=== PATIENT | female | born 1980 | race Hispanic/Latino ===

== ENCOUNTER 2018-08-02 12:28 | Emergency (ER) | payer OTHER ==
[2018-08-02] MEDS ORDERED: IOHEXOL-350 75 ML VIAL IV ONE ×2 (12:44)
[2018-08-02 13:33] LABS: BASOPHILS % (AUTO) 0.7 % (0.0-5.0); EOSINOPHILS % (AUTO) 1.8 % (0.0-8.0); HEMATOCRIT 35.7 % (36-48); LYMPHOCYTES % (AUTO) 14.1 % (21.0-51.0); MEAN CORPUSCULAR HEMOGLOBIN 31.2 pg (27.0-33.0); MEAN CORPUSCULAR HGB CONC 34.5 g/dL (32.0-36.0); MEAN CORPUSCULAR VOLUME 90.6 fL (79-99); MONOCYTES % (AUTO) 8.6 % (3.0-13.0); NEUTROPHILS % (AUTO) 74.8 % (40.0-77.0); PLATELET COUNT (AUTO) 342 K/uL (130-400); RED BLOOD CELL COUNT(AUTO) 3.94 MIL/uL (4.00-5.50); RED CELL DISTRIBUTION WIDTH 12.9 % (11.0-15.5); WHITE BLOOD COUNT (AUTO) 11.4 K/uL (4.8-10.8)
[2018-08-02 13:38] LABS: CREATININE 0.6 mg/dL (0.5-1.5); POTASSIUM 3.7 mmol/L (3.5-5.1)
[2018-08-02] MEDS ORDERED: ONDANSETRON HCL 4 MG/2 ML VIAL ONE (14:11)
[2018-08-02] MEDS ORDERED: MORPHINE SULFATE 4 MG/1ML SYG ONE (14:12)
== END 2018-08-02 15:04 | disposition home or self-care (01) ==
LOC: EDH 12:28
DX: S40.011A Contusion of right shoulder, initial encounter (principal); S50.01XA Contusion of right elbow, initial encounter; S60.221A Contusion of right hand, initial encounter; S09.90XA Unspecified injury of head, initial encounter; M54.2 Cervicalgia; M54.5 Low back pain; M54.6 Pain in thoracic spine; V49.49XA Driver injured in collision with other motor vehicles in traffic accident, initial encounter; Y93.89 Activity, other specified; Y92.89 Other specified places as the place of occurrence of the external cause; Y99.8 Other external cause status
CPT/HCPCS: 36415; 70450; 71045; 72125; 73030; 73080; 73090; 73130; 74177; 80048; 84703; 85025; 93005; 96374; 96375; 99285; J2270; J2405; Q9967

== ENCOUNTER 2021-04-07 23:52 | Emergency (ER) | payer OTHER, SELFPAY ==
[2021-04-08] MEDS ORDERED: ACETAMINOPHEN EXTRA STRENGTH 500 MG TABLET ONE (00:17)
[2021-04-08] MEDS ORDERED: IBUPROFEN 400 MG TABLET ONE (00:17)
[2021-04-08] MEDS ORDERED: IBUPROFEN 200 MG TAB ONE (00:18)
[2021-04-08] MEDS ORDERED: CYCLOBENZAPRINE HCL 10 MG TABLET ONE (01:02)
== END 2021-04-08 01:23 | disposition home or self-care (01) ==
LOC: EDH 23:52
DX: S83.91XA Sprain of unspecified site of right knee, initial encounter (principal); X58.XXXA Exposure to other specified factors, initial encounter; Y93.89 Activity, other specified; Y92.098 Other place in other non-institutional residence as the place of occurrence of the external cause; Y99.8 Other external cause status; Z98.890 Other specified postprocedural states
CPT/HCPCS: 73562

== ENCOUNTER 2021-09-04 14:08 | Emergency (ER) | payer OTHER ==
[~2021-09-04] VITALS: Ht 160 cm; Wt 108.9 kg
[2021-09-04] MEDS ORDERED: KETOROLAC 30MG VIAL (30MG/ML) IM STA (17:08)
[2021-09-04 19:13] LABS: APPEARANCE,URINE Cloudy (CLEAR); BILIRUBIN,URINE Negative (NEGATIVE); COLOR,URINE Yellow (YELLOW); GLUCOSE, URINE (UA) Negative (NEGATIVE); KETONES,URINE 40 mg/dL (NEGATIVE); LEUKOCYTE ESTERASE ,URINE Negative (NEGATIVE); NITRATE,URINE Negative (NEGATIVE); OCCULT BLOOD,URINE Trace (NEGATIVE); PH,URINE 5.5 (5.0-8.0); PROTEIN,URINE Negative (NEGATIVE); UROBILINOGEN,URINE 0.2 mg/dL (0.2-1.0)
[2021-09-04 19:22] LABS: BACTERIA,URINE Few /HPF (None Seen); MUCUS,URINE Rare LPF (None Seen); RBC,URINE 0-1 /HPF (0-1); SQUAMOUS EPITHELIAL CELL,UR Few /HPF (0-2); WBC,URINE 0-1 /HPF (0-1)
[2021-09-04 19:35] LABS: BASOPHILS % (AUTO) 0.7 % (0.0-5.0); EOSINOPHILS % (AUTO) 2.2 % (0.0-8.0); HEMATOCRIT 41.1 % (36-48); LYMPHOCYTES % (AUTO) 26.9 % (21.0-51.0); MEAN CORPUSCULAR HEMOGLOBIN 30.2 pg (27.0-33.0); MEAN CORPUSCULAR HGB CONC 34.3 g/dL (32.0-36.0); MONOCYTES % (AUTO) 6.1 % (3.0-13.0); NEUTROPHILS % (AUTO) 63.7 % (40.0-77.0); PLATELET COUNT (AUTO) 379 K/uL (130-400); RED BLOOD CELL COUNT(AUTO) 4.67 MIL/uL (4.00-5.50); RED CELL DISTRIBUTION WIDTH 13.1 % (11.0-15.5); WHITE BLOOD COUNT (AUTO) 12.2 K/uL (4.8-10.8)
[2021-09-04 20:05] LABS: CREATININE 0.6 mg/dL (0.5-1.5); POTASSIUM 3.8 mmol/L (3.5-5.1)
[2021-09-04 20:09] LABS: ALBUMIN 4.3 g/dL (3.5-5.0); BILIRUBIN,TOTAL 0.5 mg/dL (0.2-1.0); TOTAL PROTEIN, SERUM 8.6 g/dL (6.0-8.3)
[2021-09-04] MEDS ORDERED: 0.9%NACL 1000ML 1,000 ML IV SCH ×2 (21:30→22:30)
[2021-09-04] MEDS ORDERED: MELO7.5T12 PO (22:03)
[2021-09-04 22:16] VITALS: BP 124/76
== END 2021-09-04 22:14 | disposition home or self-care (01) ==
LOC: EDH 14:08
DX: E27.8 Other specified disorders of adrenal gland (principal); K42.9 Umbilical hernia without obstruction or gangrene; Z79.1 Long term (current) use of non-steroidal anti-inflammatories (NSAID); Z98.890 Other specified postprocedural states
CPT/HCPCS: 36415; 74176; 80053; 81001; 82150; 83690; 84703; 85025; 96360; 96372; 99284; J1885; J7030

== ENCOUNTER 2021-11-14 23:46 | Emergency (ER) | payer OTHER ==
[~2021-11-14] VITALS: Ht 160 cm; Wt 109.3 kg
[~2021-11-14 23:46] MED LIST: MELO7.5T12 PO
[2021-11-14 23:47] VITALS: BP 128/69
[2021-11-15] MEDS ORDERED: HYDROCODONE/ACETAMINOPHEN 5/325 MG TAB PO ONE (01:00)
[2021-11-15] MEDS ORDERED: ORPHENADRINE CITRATE 30 MG/ML ML IM ONE (01:00)
[2021-11-15] MEDS ORDERED: KETOROLAC 60 MG VIAL (30MG/ML) IM ONE (01:00)
[2021-11-15] MEDS ORDERED: ORPHENADRINE CITRATE 30 MG/ML ML ONE (01:09)
[2021-11-15] MEDS ORDERED: KETOROLAC 60 MG VIAL (30MG/ML) ONE (01:09)
[2021-11-15] MEDS ORDERED: HYDROCODONE/ACETAMINOPHEN 5/325 MG TAB ONE (01:09)
[2021-11-15 01:19] LABS: BILIRUBIN,URINE Negative (NEGATIVE); COLOR,URINE Yellow (YELLOW); GLUCOSE, URINE (UA) Negative (NEGATIVE); KETONES,URINE Negative (NEGATIVE); LEUKOCYTE ESTERASE ,URINE Negative (NEGATIVE); NITRATE,URINE Negative (NEGATIVE); OCCULT BLOOD,URINE Trace (NEGATIVE); PH,URINE 5.5 (5.0-8.0); PROTEIN,URINE Trace mg/dL (NEGATIVE)
[2021-11-15 01:21] LABS: HCG,QUAL RESULT NEGATIVE (NEGATIVE)
[2021-11-15 01:22] LABS: APPEARANCE,URINE HAZY (CLEAR)
[2021-11-15 01:33] LABS: BACTERIA,URINE Few /HPF (None Seen); MUCUS,URINE Few LPF (None Seen); RBC,URINE 0-1 /HPF (0-1); SQUAMOUS EPITHELIAL CELL,UR 0-2 /HPF (0-2); WBC,URINE 0-1 /HPF (0-1)
[2021-11-15] MEDS ORDERED: MELO7.5T12 PO (02:23)
[2021-11-15] MEDS ORDERED: LIDOP TP (02:23)
[2021-11-15] MEDS ORDERED: ORPH-43 PO (02:23)
== END 2021-11-15 02:38 | disposition home or self-care (01) ==
LOC: EDH 23:46
DX: S93.601A Unspecified sprain of right foot, initial encounter (principal); S39.012A Strain of muscle, fascia and tendon of lower back, initial encounter; S30.0XXA Contusion of lower back and pelvis, initial encounter; W18.39XA Other fall on same level, initial encounter; Y93.89 Activity, other specified; Y92.89 Other specified places as the place of occurrence of the external cause; Y99.8 Other external cause status; Z79.1 Long term (current) use of non-steroidal anti-inflammatories (NSAID)
CPT/HCPCS: 72100; 73630; 81001; 81025; 96372 ×2; 99284; J1885; J2360

== ENCOUNTER 2021-11-17 10:52 | Emergency (ER) | payer OTHER ==
[~2021-11-17] VITALS: Ht 160 cm; Wt 108.9 kg
[~2021-11-17 10:52] MED LIST changes: +LIDOP TP; +ORPH-43 PO
[2021-11-17 12:22] LABS: APPEARANCE,URINE Clear (CLEAR); BILIRUBIN,URINE Negative (NEGATIVE); COLOR,URINE Yellow (YELLOW); GLUCOSE, URINE (UA) Negative (NEGATIVE); KETONES,URINE Negative (NEGATIVE); LEUKOCYTE ESTERASE ,URINE Negative (NEGATIVE); NITRATE,URINE Negative (NEGATIVE); OCCULT BLOOD,URINE Small (NEGATIVE); PROTEIN,URINE Negative (NEGATIVE); UROBILINOGEN,URINE 0.2 mg/dL (0.2-1.0)
[2021-11-17] MEDS ORDERED: KETOROLAC 60 MG VIAL (30MG/ML) IM ONE (12:30)
[2021-11-17] MEDS ORDERED: ORPHENADRINE CITRATE 30 MG/ML ML IM ONE (12:30)
[2021-11-17] MEDS ORDERED: HYDROCODONE/ACETAMINOPHEN 5/325 MG TAB PO ONE (12:30)
[2021-11-17 12:39] LABS: BACTERIA,URINE Rare /HPF (None Seen); RBC,URINE 0-1 /HPF (0-1); SQUAMOUS EPITHELIAL CELL,UR Rare /HPF (0-2); WBC,URINE 0-1 /HPF (0-1)
[2021-11-17 12:41] LABS: HCG,QUAL RESULT NEGATIVE (NEGATIVE)
[2021-11-17] MEDS ORDERED: CYCL-309 PO (14:02)
[2021-11-17 14:24] VITALS: BP 126/74
== END 2021-11-17 14:24 | disposition home or self-care (01) ==
LOC: EDH 10:52
DX: M54.50 Low back pain, unspecified (principal); M62.838 Other muscle spasm; Z79.1 Long term (current) use of non-steroidal anti-inflammatories (NSAID)
CPT/HCPCS: 74176; 81001; 81025; 96372 ×2; 99284; J1885; J2360

== ENCOUNTER 2022-02-19 00:26 | Emergency (ER) | payer OTHER ==
[~2022-02-19] VITALS: Ht 160 cm; Wt 105.2 kg
[~2022-02-19 00:26] MED LIST changes: +CYCL-309 PO
[2022-02-19 01:22] LABS: BASOPHILS % (AUTO) 0.5 % (0.0-5.0); EOSINOPHILS % (AUTO) 2.7 % (0.0-8.0); HEMATOCRIT 38.3 % (36-48); LYMPHOCYTES % (AUTO) 28.8 % (21.0-51.0); MEAN CORPUSCULAR HGB CONC 34.2 g/dL (32.0-36.0); MEAN CORPUSCULAR VOLUME 87.6 fL (79-99); MONOCYTES % (AUTO) 7.6 % (3.0-13.0); PLATELET COUNT (AUTO) 286 K/uL (130-400); RED BLOOD CELL COUNT(AUTO) 4.37 MIL/uL (4.00-5.50); RED CELL DISTRIBUTION WIDTH 13.2 % (11.0-15.5)
[2022-02-19 01:26] LABS: APPEARANCE,URINE Clear (CLEAR); BILIRUBIN,URINE Negative (NEGATIVE); COLOR,URINE Yellow (YELLOW); GLUCOSE, URINE (UA) Negative (NEGATIVE); KETONES,URINE Trace mg/dL (NEGATIVE); LEUKOCYTE ESTERASE ,URINE Trace (NEGATIVE); NITRATE,URINE Negative (NEGATIVE); OCCULT BLOOD,URINE Negative (NEGATIVE); PROTEIN,URINE Negative (NEGATIVE)
[2022-02-19 01:28] LABS: HCG,QUAL RESULT NEGATIVE (NEGATIVE)
[2022-02-19 01:32] LABS: BACTERIA,URINE None Seen /HPF (None Seen); MUCUS,URINE Rare LPF (None Seen); RBC,URINE None Seen /HPF (0-1); SQUAMOUS EPITHELIAL CELL,UR Moderate /HPF (0-2); WBC,URINE 0-1 /HPF (0-1)
[2022-02-19 01:33] LABS: INR 0.98 (0.85-1.15); PROTHROMBIN TIME 10.7 SEC (9.6-11.6)
[2022-02-19 01:57] LABS: CREATININE 0.7 mg/dL (0.5-1.5); POTASSIUM 3.9 mmol/L (3.5-5.1)
[2022-02-19 02:01] LABS: BILIRUBIN,TOTAL 0.3 mg/dL (0.2-1.0); TOTAL PROTEIN, SERUM 7.8 g/dL (6.0-8.3)
[2022-02-19] MEDS ORDERED: LIDOP TP (02:57)
[2022-02-19] MEDS ORDERED: LIDOCAINE 5% TOPICAL PATCH TP ONE (03:00)
[2022-02-19 03:15] VITALS: BP 110/56
== END 2022-02-19 03:19 | disposition home or self-care (01) ==
LOC: EDH 00:26
DX: I83.892 Varicose veins of left lower extremity with other complications (principal); Z79.1 Long term (current) use of non-steroidal anti-inflammatories (NSAID)
CPT/HCPCS: 36415; 80053; 81001; 81025; 84484; 85025; 85610; 93005; 93971

== ENCOUNTER 2022-12-09 01:09 | Emergency (ER) | payer OTHER ==
[~2022-12-09] VITALS: Ht 160 cm; Wt 103.0 kg
[~2022-12-09 01:09] MED LIST changes: +FAMO-136 PO; +FIORIT PO; +ONDA4TAB10 PO
[2022-12-09 02:34] VITALS: BP 136/72
[2022-12-09] MEDS ORDERED: DOCU-116 PO (03:26)
[2022-12-09] MEDS ORDERED: HYDR25SU38 RC (03:26)
== END 2022-12-09 03:37 | disposition home or self-care (01) ==
LOC: EDH 01:09
DX: K64.5 Perianal venous thrombosis (principal); Z79.1 Long term (current) use of non-steroidal anti-inflammatories (NSAID); Z79.899 Other long term (current) drug therapy; Z98.890 Other specified postprocedural states
CPT/HCPCS: 99282

== ENCOUNTER 2024-08-06 17:46 | Emergency (ER) | payer OTHER ==
[~2024-08-06] VITALS: Ht 160 cm; Wt 112.9 kg
[~2024-08-06 17:46] MED LIST changes: +DOCU-116 PO; +HYDR25SU38 RC; +ONDA-243 PO; -ONDA4TAB10 PO; -ORPH-43 PO; +ORPH100T4 PO
[2024-08-06 18:13] LABS: BASOPHILS # (AUTO) 0.08 K/uL (0.00-0.20); BASOPHILS % (AUTO) 0.7 % (0.0-5.0); EOSINOPHILS # (AUTO) 0.29 K/uL (0.00-0.70); EOSINOPHILS % (AUTO) 2.4 % (0.0-8.0); HEMATOCRIT 39.3 % (36-48); IMMATURE GRANULOCYTE ABSOLUTE 0.04 K/uL (0-1); LYMPHOCYTES % (AUTO) 24.2 % (21.0-51.0); MEAN CORPUSCULAR HEMOGLOBIN 31.2 pg (27.0-33.0); MEAN CORPUSCULAR HGB CONC 34.9 g/dL (32.0-36.0); MEAN CORPUSCULAR VOLUME 89.5 fL (79-99); MONOCYTES % (AUTO) 8.1 % (3.0-13.0); NEUTROPHILS # (AUTO) 7.9 K/uL (1.8-7.7); NEUTROPHILS % (AUTO) 64.3 % (40.0-77.0); PLATELET COUNT (AUTO) 351 K/uL (130-400); RED BLOOD CELL COUNT(AUTO) 4.39 MIL/uL (4.00-5.50); RED CELL DISTRIBUTION WIDTH 12.8 % (11.0-15.5); WHITE BLOOD COUNT (AUTO) 12.3 K/uL (4.8-10.8)
[2024-08-06 18:23] LABS: CREATININE 0.9 mg/dL (0.5-1.0); POTASSIUM 3.7 mmol/L (3.5-5.1)
[2024-08-06 18:28] LABS: BILIRUBIN,TOTAL 0.5 mg/dL (0.2-1.0)
[2024-08-06] MEDS: ketOROlac 15MG/ML VIAL (15MG/ML) IV ONE (19:02)
[2024-08-06 19:15] LABS: APPEARANCE,URINE CLOUDY (CLEAR); BILIRUBIN,URINE NEGATIVE (NEGATIVE); COLOR,URINE YELLOW (YELLOW); GLUCOSE, URINE (UA) NEGATIVE (NEGATIVE); KETONES,URINE 5 mg/dL (NEGATIVE); LEUKOCYTE ESTERASE ,URINE NEGATIVE Leu/uL (NEGATIVE); NITRATE,URINE NEGATIVE (NEGATIVE); OCCULT BLOOD,URINE NEGATIVE (NEGATIVE); PROTEIN,URINE 20 mg/dL (NEGATIVE); UROBILINOGEN,URINE 0.2 mg/dL (0.2-1.0)
[2024-08-06 19:18] LABS: ADD UA MICROSCOPIC YES
[2024-08-06 19:21] LABS: BACTERIA,URINE RARE /HPF (None Seen); MUCUS,URINE RARE LPF (None Seen); SQUAMOUS EPITHELIAL CELL,UR FEW /HPF (0-2)
[2024-08-06] MEDS: ondanSETRON 4MG INJ IVP ONE (20:36)
[2024-08-06] MEDS: morPHINE 2 MG SYG IVP ONE (20:36)
[2024-08-06] MEDS ORDERED: KETO10TA2 PO (20:50)
[2024-08-06 21:14] VITALS: BP 127/55; PULSE 71; RESP 18; TEMP 98.8; O2SAT 99
[2024-08-07] MEDS ORDERED: IBUP-2070 PO (16:21)
[2024-08-07] MEDS ORDERED: CYCL5TAB PO (16:21)
== END 2024-08-06 21:15 | disposition home or self-care (01) ==
LOC: EDH 17:46
DX: M79.602 Pain in left arm (principal); R07.89 Other chest pain; Z79.899 Other long term (current) drug therapy; Z98.890 Other specified postprocedural states
CPT/HCPCS: 99285; 96374; 96375; 71045; 84484; 80053; 85025; 81001; 36415; 93005; J2270; J2405; J1885

== ENCOUNTER 2024-08-07 14:13 | Emergency (ER) | payer OTHER ==
[~2024-08-07] VITALS: Ht 160 cm; Wt 112.9 kg
[~2024-08-07 14:13] MED LIST changes: +KETO10TA2 PO
[2024-08-07] MEDS: ketOROlac 30MG VIAL (30MG/ML) IM ONE (14:51)
[2024-08-07] MEDS: CYCLOBENZAPRINE HCL 10 MG TABLET PO ONE (14:51)
[2024-08-07] MEDS: LIDOCAINE 4% ADH..PATCH TP ONE (15:41)
[2024-08-07] MEDS ORDERED: CYCL5TAB PO (16:21)
[2024-08-07] MEDS ORDERED: IBUP-2070 PO (16:21)
[2024-08-07 16:44] VITALS: BP 121/82; PULSE 84; RESP 20; TEMP 98.4; O2SAT 97
== END 2024-08-07 16:50 | disposition home or self-care (01) ==
LOC: EDH 14:13
DX: S43.401A Unspecified sprain of right shoulder joint, initial encounter (principal); R07.89 Other chest pain; M79.621 Pain in right upper arm; Z79.899 Other long term (current) drug therapy; Z98.890 Other specified postprocedural states; Y04.0XXA Assault by unarmed brawl or fight, initial encounter; Y93.89 Activity, other specified; Y92.89 Other specified places as the place of occurrence of the external cause; Y99.8 Other external cause status
CPT/HCPCS: 99284; 73070; 73030; 96372; J1885

== ENCOUNTER → 2024-10-13 | Outpatient (CLI) | payer OTHER ==
[~2024-10-13] MED LIST changes: +CYCL5TAB3 PO; +IBUP-2070 PO
== END | disposition home or self-care (01) ==
LOC: SHCH 10:47
PROVIDERS: ATTEND Internal Medicine Cardiovascular Disease
DX: R07.9 Chest pain, unspecified (principal)
CPT/HCPCS: 93306